=== PATIENT | female | born 1935 | race Caucasian/White ===

== ENCOUNTER 2020-11-27 14:55 | Outpatient (CLI) | payer MEDICARE | END 2020-11-27 23:59 | disposition home or self-care (01) | LOC: RAD 14:55 | PROVIDERS: ATTEND Physician Assistant Surgical | DX: M71.21 Synovial cyst of popliteal space [Baker], right knee (principal); R22.41 Localized swelling, mass and lump, right lower limb ==

== ENCOUNTER 2020-12-03 10:58 | Outpatient (CLI) | payer MEDICARE ==
[2020-12-03 11:20] LABS: HCT (SEDRATE) 46.4 % (34.6-47.8)
[2020-12-03 11:23] LABS: BASOPHILS % (AUTO) 1 % (0-1); EOSINOPHILS % (AUTO) 2 % (1-7); LYMPHOCYTES % (AUTO) 23 % (22-44); MEAN CORPUSCULAR HEMOGLOBIN 31.3 pg (27.0-34.8); MEAN CORPUSCULAR HGB CONC 33.2 g/dL (32.4-35.8); MONOCYTES % (AUTO) 7 % (2-9); NEUTROPHILS % (AUTO) 67 % (42-75); PLATELET COUNT 248 x10^3/uL (130-400); RED BLOOD COUNT 4.85 x10^6/uL (3.82-5.3); RED CELL DISTRIBUTION WIDTH 13.5 % (9.6-15.2)
[2020-12-03 11:40] LABS: C-REACTIVE PROTEIN, QUANT 1.1 mg/dL (0.02-0.49)
== END 2020-12-03 23:59 | disposition home or self-care (01) ==
LOC: LAB 10:58
PROVIDERS: ATTEND Physician Assistant Surgical
DX: R22.41 Localized swelling, mass and lump, right lower limb (principal); M79.671 Pain in right foot
CPT/HCPCS: 36415; 84550; 85025; 85651; 86140